=== PATIENT | male | born 1995 | race African-American/Black ===

== ENCOUNTER 2025-05-08 03:16 | Emergency (ER) | payer OTHER ==
[~2025-05-08] VITALS: Ht 185.4 cm; Wt 82.0 kg
[2025-05-08 03:19] VITALS: O2SAT 99
[2025-05-08 05:18] VITALS: BP 114/64; PULSE 64; RESP 21; TEMP 36.8; O2SAT 100
== END 2025-05-08 05:23 ==
LOC: ER 03:16
DX: S00.33XA Contusion of nose, initial encounter (principal); S09.90XA Unspecified injury of head, initial encounter; Z02.89 Encounter for other administrative examinations; X58.XXXA Exposure to other specified factors, initial encounter; Y93.89 Activity, other specified; Y92.89 Other specified places as the place of occurrence of the external cause; Y99.8 Other external cause status
CPT/HCPCS: 99284

== ENCOUNTER 2025-05-16 02:47 | Emergency (ER) | payer MEDICAID, OTHER ==
[~2025-05-16] VITALS: Ht 175.3 cm; Wt 65.0 kg
[2025-05-16 03:01] VITALS: O2SAT 100
[2025-05-16 03:02] VITALS: PULSE 68; TEMP 36.8; O2SAT 100
[2025-05-16] MEDS: KETOROLAC 15MG/ML VIAL IM ONE (04:34)
[2025-05-16 04:39] VITALS: BP 114/62; RESP 14
[2025-05-16] MEDS: LIDOCAINE 5% PATCH TOP SCH (04:39)
[2025-05-16] MEDS: ACETAMINOPHEN 325MG TABLET PO ONE (04:45)
[2025-05-16] MEDS ORDERED: LIDO-53 TP (05:20)
[2025-05-16] MEDS ORDERED: NAPR-1176 MT (05:20)
== END 2025-05-16 05:43 | disposition home or self-care (01) ==
LOC: ER 02:47
DX: R07.89 Other chest pain (principal); R07.81 Pleurodynia
CPT/HCPCS: 71045; 99283; J1885